=== PATIENT | female | born 1975 | race Caucasian/White ===

== ENCOUNTER 2022-11-03 06:00 | Outpatient (RCR) | payer OTHER, SELFPAY | END 2022-12-02 23:59 | disposition home or self-care (01) | LOC: GPT 06:00 | PROVIDERS: Visit Provider Orthopaedic Surgery | DX: S43.51XD Sprain of right acromioclavicular joint, subsequent encounter (principal); X58.XXXD Exposure to other specified factors, subsequent encounter | CPT/HCPCS: 97110; 97112; 97140; 97161 ==

== ENCOUNTER 2022-12-03 06:00 | Outpatient (RCR) | payer OTHER, SELFPAY | END 2023-01-02 23:59 | disposition home or self-care (01) | LOC: GPT 06:00 | PROVIDERS: Visit Provider Orthopaedic Surgery | DX: S43.51XD Sprain of right acromioclavicular joint, subsequent encounter (principal); X58.XXXD Exposure to other specified factors, subsequent encounter | CPT/HCPCS: 97110; 97112; 97140 ==

== ENCOUNTER 2023-01-03 06:00 | Outpatient (RCR) | payer OTHER, SELFPAY | END 2023-02-01 23:59 | disposition home or self-care (01) | LOC: GPT 06:00 | PROVIDERS: Visit Provider Orthopaedic Surgery | DX: S43.51XD Sprain of right acromioclavicular joint, subsequent encounter (principal); X58.XXXD Exposure to other specified factors, subsequent encounter | CPT/HCPCS: 97110; 97112; 97164 ==

== ENCOUNTER 2023-02-02 06:00 | Outpatient (RCR) | payer OTHER, SELFPAY | END 2023-03-04 23:59 | disposition home or self-care (01) | LOC: GPT 06:00 | PROVIDERS: Visit Provider Orthopaedic Surgery | DX: S43.51XD Sprain of right acromioclavicular joint, subsequent encounter (principal); X58.XXXD Exposure to other specified factors, subsequent encounter | CPT/HCPCS: 97110; 97112; 97140; 97530 ==

== ENCOUNTER 2023-03-05 06:00 | Outpatient (RCR) | payer OTHER, SELFPAY | END 2023-04-04 23:59 | disposition home or self-care (01) | LOC: GPT 06:00 | PROVIDERS: Visit Provider Orthopaedic Surgery | DX: S43.51XD Sprain of right acromioclavicular joint, subsequent encounter (principal); X58.XXXD Exposure to other specified factors, subsequent encounter | CPT/HCPCS: 97110; 97112; 97530 ==

== ENCOUNTER 2023-04-05 06:00 | Outpatient (RCR) | payer OTHER, SELFPAY | END 2023-05-03 23:59 | disposition home or self-care (01) | LOC: GPT 06:00 | PROVIDERS: Visit Provider Orthopaedic Surgery | DX: S43.51XD Sprain of right acromioclavicular joint, subsequent encounter (principal); X58.XXXD Exposure to other specified factors, subsequent encounter | CPT/HCPCS: 97110; 97112; 97530 ==

== ENCOUNTER 2023-05-04 06:00 | Outpatient (RCR) | payer OTHER, SELFPAY | END 2023-05-14 23:59 | disposition home or self-care (01) | LOC: GPT 06:00 | PROVIDERS: Visit Provider Orthopaedic Surgery | DX: S43.51XD Sprain of right acromioclavicular joint, subsequent encounter (principal); X58.XXXD Exposure to other specified factors, subsequent encounter | CPT/HCPCS: 97110 ==

== ENCOUNTER 2024-09-01 12:11 | Outpatient (CLI) | payer OTHER, SELFPAY ==
--- NOTE | 2024-09-01 12:19 | MR_ITS ---
WS: [id number] MRI LUMBAR SPINE NONCONTRAST TECHNIQUE: Sagittal T1, T2 and STIR imaging. Axial T1 and T2 imaging. CLINICAL INFORMATION: LUMBAR CONTUSION COMPARISON: None. FINDINGS: Mild lumbar curve. No acute compression. No high-grade central canal stenosis. L1-L2: Normal. L2-L3: Mild annular bulging. Slight narrowing of the RIGHT subarticular recess. Moderate facet arthropathy. Spinal canal and foramen are patent. L3-L4: Mild annular bulging. Narrowing of the RIGHT subarticular recess. Moderate facet arthropathy. Mild RIGHT foraminal narrowing. L4-L5: Mild annular bulging. Mild central canal stenosis. Impingement of the subarticular recess bilaterally. Moderate facet arthropathy. Mild RIGHT foraminal narrowing. L5-S1: Mild annular bulging. Slight indentation of the ventral thecal sac. Slight encroachment on the LEFT S1 nerve root. Moderate facet arthropathy. Foramen are patent. Small bilateral renal cysts. MR/MR lumbar spine wo con* [id number] IMPRESSION: 1. Mild lumbar curve. No acute compression. 2. No high-grade central canal stenosis. 3. Mild central canal stenosis L4-5 with impingement of the subarticular reces s bilaterally. Mild RIGHT L4-5 foraminal narrowing. 4. Moderate facet arthropathy L4-L5 and L5-S1. 5. Disc bulging L5-S1 with slight encroachment on the LEFT S1 nerve root.
--- NOTE | 2024-09-01 12:32 | MRR_ITS ---
PROCEDURE INFORMATION: Exam: MR Left Lower Extremity Joint Without Contrast; Ankle Exam date and time: 09/01/2024 1:38 PM Age: 49 years old Clinical indication: Injury or trauma; Work related; Sprain or strain; Left; Injury details: Lt ankle pain injury at work 6 months ago, slipped on ice with hands full TECHNIQUE: Imaging protocol: Magnetic resonance imaging of the left lower extremity without contrast. Exam focused on the ankle. COMPARISON: No relevant prior studies available. FINDINGS: Bones/joints: Normal osseous alignment. A well corticated ossified body adjacent to the anterior inferior margin of the distal fibula best demonstrated on series 6, image 13 measures 0.5 x 0.5 x 0.6 cm, and lies within the expected location of the anterior talofibular ligament. No evidence of acute fracture. No significant joint effusion. LIGAMENTS: Distal tibiofibular syndesmosis: Unremarkable. No tear. Anterior talofibular ligament: The visualized portions of the anterior talofibular ligament are intact. Posterior talofibular ligament: Unremarkable. No tear. Calcaneofibular ligament: Unremarkable. No tear. Deltoid ligament complex: Unremarkable. No tear. TENDONS: Flexor tendons of foot: Unremarkable as visualized. Tibialis posterior tendon: Unremarkable as visualized. Peroneal tendons: There is probable mild intrasubstance/longitudinal tearing of the proximal peroneus brevis tendon near the musculotendinous junction. Extensor tendons of foot: Unremarkable as visualized. Tibialis anterior tendon: Unremarkable as visualized. Achilles tendon: Minimal intrasubstance increased signal intensity in the distal Achilles tendon is present. Tarsal canal (Sinus tarsi): Unremarkable. Tarsal tunnel: Unremarkable. Soft tissues: Mild lateral subcutaneous edema is identified. Plantar fascia: Plantar fascia is unremarkable. MR/MR ankle LT wo con* [id number] IMPRESSION: 1. Mild lateral subcutaneous edema, which can be related to contusion in the setting of trauma. No discrete soft tissue fluid collection. 2. An ossified body adjacent to the anterior inferior margin of the distal fibula is noted, in the expected location of the anterior talofibular ligament, which does not appear completely torn. These findings suggest an old ligamentous avulsion fracture. 3. Probable intrasubstance/longitudinal tear of the proximal peroneus brevis tendon. 4. Minimal Achilles tendinosis.
--- NOTE | 2024-09-01 12:33 | MR_ITS ---
WS: [id number] MRI THORACIC SPINE WITHOUT CONTRAST TECHNIQUE: Sagittal T1, T2 and STIR imaging. Axial T2 imaging. Noncontrast imaging obtained. CLINICAL INFORMATION: back pain COMPARISON: None. FINDINGS: Mild thoracic curve. Mild thoracic kyphosis. No acute compression fractures. Small disc protrusions in the midthoracic spine at T6-T7 and T7-T8. Small central protrusion at T7-T8 with mild central canal stenosis. Cord signal is normal. Moderate facet arthropathy lower thoracic spine. Partially visualized small renal cysts. Normal caliber thoracic aorta. Prior sternotomy. Normal caliber thoracic aorta. Small esophageal hiatal hernia. MR/MR thoracic spin wo con* [id number] IMPRESSION: 1. Mild thoracic curve. Mild thoracic kyphosis. 2. No acute compression fractures. 3. Shallow central protrusions at T6-T7 and T7-T8 worse at T7-T8 with mild page tral canal stenosis. 4. Cord signal is normal. 5. Small esophageal hiatal hernia.
== END 2024-09-01 12:12 | disposition home or self-care (01) ==
LOC: RAD 12:13
PROVIDERS: Visit Provider Anesthesiology Pain Medicine
DX: S29.019A Strain of muscle and tendon of unspecified wall of thorax, initial encounter (principal); S30.0XXA Contusion of lower back and pelvis, initial encounter; S90.02XA Contusion of left ankle, initial encounter; X58.XXXA Exposure to other specified factors, initial encounter; M43.8X4 Other specified deforming dorsopathies, thoracic region; M40.294 Other kyphosis, thoracic region; M48.04 Spinal stenosis, thoracic region; K44.9 Diaphragmatic hernia without obstruction or gangrene; M47.894 Other spondylosis, thoracic region; N28.1 Cyst of kidney, acquired; Z98.890 Other specified postprocedural states; M43.8X6 Other specified deforming dorsopathies, lumbar region; M48.061 Spinal stenosis, lumbar region without neurogenic claudication; M47.896 Other spondylosis, lumbar region; M47.897 Other spondylosis, lumbosacral region; M51.379 Other intervertebral disc degeneration, lumbosacral region without mention of lumbar back pain or lower extremity pain; M51.369 Other intervertebral disc degeneration, lumbar region without mention of lumbar back pain or lower extremity pain; R60.0 Localized edema; R93.6 Abnormal findings on diagnostic imaging of limbs
CPT/HCPCS: 72146; 72148; 73721